=== PATIENT | male | born 1990 | race Caucasian/White ===

== ENCOUNTER 2020-03-13 18:36 | Emergency (ER) | payer OTHER ==
[2020-03-13] MEDS ORDERED: HYDROCODONE/ACETAMINOPHEN 5-325 MG TABLET PO ONE (19:15)
[2020-03-13] MEDS ORDERED: DIPH/PERTUSS(ACELL)/TETANUS VAC/PF 0.5 ML SYR (>=10YO) IM ONE (19:15)
[2020-03-13] MEDS ORDERED: ONDANSETRON 4 MG TAB.RAPDIS PO ONE (19:16)
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
[2020-03-13 20:47] VITALS: BP 133/77
[2020-03-13] MEDS ORDERED: HYDROCODONE/ACETAMINOPHEN 5-325 MG (6 TAB/ER DISP) PO PRN (20:51)
== END 2020-03-13 21:34 | disposition home or self-care (01) ==
LOC: ER 18:36
DX: S70.12XA Contusion of left thigh, initial encounter (principal); S60.512A Abrasion of left hand, initial encounter; M79.631 Pain in right forearm; R11.0 Nausea; R07.89 Other chest pain; V89.2XXA Person injured in unspecified motor-vehicle accident, traffic, initial encounter; Z23 Encounter for immunization
CPT/HCPCS: 99284; 90471; 73552; 73090; 71101; 90715; S0119